=== PATIENT | male | born 1940 | race Asian ===

== ENCOUNTER 2018-05-30 14:21 | Inpatient (IN) | payer OTHER ==
[~2018-05-30] VITALS: Ht 167.6 cm; Wt 76.9 kg
[2018-05-30 14:25] VITALS: Ht 167.6 cm; Wt 76.9 kg
[2018-05-30 14:57] LABS: BASOPHIL % 0.1 % (0-2); PLATELET COUNT 233 x10^3mcL (130-400)
[2018-05-30 14:59] LABS: RED CELL DISTRIBUTION WIDTH 14.9 % (11.5-14.5)
[2018-05-30 15:08] LABS: CALCIUM 8.9 mg/dL (8.5-10.1); CHLORIDE SERUM 105 mmol/L (98-107); GLUCOSE SERUM 162 mg/dL (74-106); POTASSIUM SERUM 3.6 mmol/L (3.5-5.1); SODIUM SERUM 142 mmol/L (136-145)
[2018-05-30 15:15] LABS: ALBUMIN 3.6 g/dL (3.4-5.0); ALKALINE PHOSPHATASE 121 U/L (46-116); ALT/SGPT 37 U/L (16-63); AST/SGOT 28 U/L (15-37); BILIRUBIN TOTAL 1.71 mg/dL (0.20-1.00); TOTAL PROTEIN, SERUM 7.6 g/dL (6.4-8.2)
[2018-05-30] MEDS ORDERED: CLOPIDOGREL75 M1 PO (17:56)
[2018-05-30] MEDS ORDERED: ASPIR 8181 MG PO (17:57)
[2018-05-30] MEDS ORDERED: DIO160 PO (17:58)
[2018-05-30] MEDS ORDERED: FARXIGA10 MG PO (17:59)
[2018-05-30] MEDS ORDERED: LIPI20 PO (17:59)
[2018-05-30 19:46] LABS: MAGNESIUM 1.7 mg/dL (1.8-2.4); PHOSPHOROUS 3.8 mg/dL (2.5-4.9)
[2018-05-30 19:50] LABS: FREE T4 1.12 ng/dL (0.76-1.46); FREE THYROXINE INDEX 2.3 ug/dL (1.4-4.5); T4(THYROXINE) 7.1 ug/dL (4.7-13.3)
[2018-05-30 19:52] VITALS: BP 191/97
[2018-05-31 01:29] LABS: microscopic required? NO
[2018-05-31 01:48] LABS: urine erythrocyte NEGATIVE (NEGATIVE)
[2018-05-31 01:59] LABS: AMPHETAMINE QUAL UR NONE DETECTED (See below)
[2018-05-31 05:15] VITALS: BP 143/77
[2018-05-31 06:10] LABS: BASOPHIL % 0.3 % (0-2); PLATELET COUNT 228 x10^3mcL (130-400); RED CELL DISTRIBUTION WIDTH 14.4 % (11.5-14.5)
[2018-05-31 06:24] LABS: CALCIUM 8.6 mg/dL (8.5-10.1); CARBON DIOXIDE 27.4 mmol/L (21-32); CHLORIDE SERUM 105 mmol/L (98-107); CREATININE SERUM 0.9 mg/dL (0.7-1.3); GLUCOSE SERUM 144 mg/dL (74-106); MAGNESIUM 1.7 mg/dL (1.8-2.4); POTASSIUM SERUM 3.5 mmol/L (3.5-5.1); SODIUM SERUM 143 mmol/L (136-145)
[2018-05-31 08:12] VITALS: BP 124/61
[2018-05-31 08:14] VITALS: BP 128/57
[2018-05-31 08:15] VITALS: BP 124/61
[2018-05-31 12:43] VITALS: BP 172/90
[2018-05-31] MEDS ORDERED: TOPROL XL25 MG PO (14:18)
== END 2018-05-31 16:48 | disposition home or self-care (01) | DRG 309 ==
LOC: ED 14:21 → DU 19:15
PROVIDERS: Internal Medicine
DX: R00.0 Tachycardia, unspecified (principal); I24.9 Acute ischemic heart disease, unspecified; I11.9 Hypertensive heart disease without heart failure; I25.10 Atherosclerotic heart disease of native coronary artery without angina pectoris; E11.65 Type 2 diabetes mellitus with hyperglycemia; E83.42 Hypomagnesemia; F41.9 Anxiety disorder, unspecified; R60.9 Edema, unspecified; Z68.27 Body mass index [BMI] 27.0-27.9, adult; Z95.1 Presence of aortocoronary bypass graft; Z79.82 Long term (current) use of aspirin; Z72.0 Tobacco use
CPT/HCPCS: 83880; 84439; 85378; J7030; Q0092

== ENCOUNTER 2019-05-25 13:34 | Emergency (ER) | payer OTHER ==
[~2019-05-25] VITALS: Ht 172.7 cm; Wt 80.7 kg
[~2019-05-25 13:34] MED LIST: ASPIR 8181 MG PO; CLOPIDOGREL75 M1 PO; DIO160 PO; FARXIGA10 MG PO; LIPI20 PO; TOPROL XL25 MG PO
[2019-05-25 13:35] VITALS: Ht 172.7 cm; Wt 80.7 kg
[2019-05-25 14:55] LABS: BASOPHIL % 0.3 % (0-2); PLATELET COUNT 176 x10^3mcL (130-400)
[2019-05-25 15:03] LABS: CALCIUM 7.9 mg/dL (8.5-10.1); CARBON DIOXIDE 26.6 mmol/L (21-32); CHLORIDE SERUM 107 mmol/L (98-107); CREATININE SERUM 1.1 mg/dL (0.7-1.3); GLUCOSE SERUM 160 mg/dL (74-106); POTASSIUM SERUM 3.5 mmol/L (3.5-5.1); SODIUM SERUM 146 mmol/L (136-145)
[2019-05-25 15:08] LABS: ALBUMIN 3.1 g/dL (3.4-5.0); ALKALINE PHOSPHATASE 79 U/L (46-116); ALT/SGPT 24 U/L (16-63); AST/SGOT 20 U/L (15-37); BILIRUBIN TOTAL 1.3 mg/dL (0.20-1.00); TOTAL PROTEIN, SERUM 6.1 g/dL (6.4-8.2)
[2019-05-25 20:45] VITALS: BP 142/71
== END 2019-05-25 20:45 | disposition short-term general hospital (02) ==
LOC: ED 13:34
PROVIDERS: Emergency Medicine
DX: S01.81XA Laceration without foreign body of other part of head, initial encounter (principal); R53.1 Weakness; I10 Essential (primary) hypertension; E11.9 Type 2 diabetes mellitus without complications; M79.602 Pain in left arm; M79.601 Pain in right arm; E78.00 Pure hypercholesterolemia, unspecified; Z98.890 Other specified postprocedural states; W01.198A Fall on same level from slipping, tripping and stumbling with subsequent striking against other object, initial encounter; Y93.89 Activity, other specified; Y92.89 Other specified places as the place of occurrence of the external cause; Y99.8 Other external cause status
CPT/HCPCS: J2001; J2060; J7030